=== PATIENT | male | born 2000 | race Hispanic/Latino ===

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

== ENCOUNTER 2018-12-01 07:47 | Emergency (ER) | payer OTHER ==
[~2018-12-01] VITALS: Ht 170.2 cm; Wt 104.0 kg
[~2018-12-01 07:47] MED LIST changes: +AUGMENTIN875TAB PO
[2018-12-01] MEDS ORDERED: TORADOL PO (10:39)
[2018-12-01 10:55] VITALS: BP 146/77
== END 2018-12-01 10:55 | disposition home or self-care (01) | DRG 563 ==
LOC: ED 07:47
DX: S92.352A Displaced fracture of fifth metatarsal bone, left foot, initial encounter for closed fracture (principal); W17.89XA Other fall from one level to another, initial encounter